=== PATIENT | male | born 1990 | race Hispanic/Latino ===

== ENCOUNTER 2017-10-19 09:25 | Emergency (ER) | payer SELFPAY | END 2017-10-19 09:49 | disposition home or self-care (01) | LOC: EDH 09:25 | DX: R19.7 Diarrhea, unspecified (principal); R10.13 Epigastric pain | CPT/HCPCS: 99281 ==

== ENCOUNTER 2024-12-14 16:22 | Emergency (ER) | payer BC ==
[~2024-12-14] VITALS: Ht 167.6 cm; Wt 95.3 kg
[2024-12-14 16:44] LABS: GLUCOSE, URINE (UA) NEGATIVE (NEGATIVE); LEUKOCYTE ESTERASE ,URINE NEGATIVE Leu/uL (NEGATIVE); NITRATE,URINE NEGATIVE (NEGATIVE); OCCULT BLOOD,URINE SMALL (NEGATIVE)
[2024-12-14 16:45] LABS: ADD UA MICROSCOPIC YES; APPEARANCE,URINE HAZY (CLEAR)
[2024-12-14 16:47] LABS: SQUAMOUS EPITHELIAL CELL,UR RARE /HPF (0-2)
[2024-12-14 16:47] LABS: IMMATURE GRANULOCYTE ABSOLUTE 0.05 K/uL (0-1); NUCLEATED RED BLOOD CELLS 0.0 % (0.0-0.19); PLATELET COUNT (AUTO) 295 K/uL (130-400); RED BLOOD CELL COUNT(AUTO) 5.18 MIL/uL (4.50-6.20); RED CELL DISTRIBUTION WIDTH 12.2 % (11.0-15.5); WHITE BLOOD COUNT (AUTO) 10.7 K/uL (4.8-10.8)
[2024-12-14] MEDS: 0.9%NACL 1000ML 1,000 ML IV STA (16:56)
--- NOTE | 2024-12-14 16:56 | ERN ---
General Chief Complaint: Abdominal Pain Stated Complaint: ABDOMINAL PAIN Time Seen by MD: 16:23 Source: patient History of Present Illness Initial Comments Patient is a 34-year-old male coming in to be evaluated for right flank pain. Patient states that the pain is 10/10 begins in the right posterior flank and radiates to the right inguinal area. He states that the pain is 10/10 intensity. Allergies: Coded Allergies: No Known Drug Allergies (Unverified Allergy, Unknown, 12/14/24) Past Medical History Past Medical History: No Pertinent History Past Surgical History: Tonsillectomy ROS Dictation CONSTITUTIONAL: No chills, no fever, no weakness, no diaphoresis, no malaise. HEAD/FACE: No signs of trauma. EENT: No eye pain, no blurred vision, no tearing, no double vision, no ear pain, no ear discharge, no nose pain, no nasal congestion, no throat pain, no throat swelling, no mouth pain. RESPIRATORY: No cough, no orthopnea, no SOB, no stridor, no wheezing. CARDIOVASCULAR: No chest pain, no edema, no palpitations, no syncope. GASTROINTESTINAL/ABDOMINAL: abdominal pain, no constipation, no diarrhea, no nausea, no vomiting. GENITOURINARY: No abnormal discharge, no dysuria, no frequent urination, no hematuria. No complaints of pain in the genitals. MUSCULOSKELETAL: No back pain, no gout, no joint pain, no joint swelling, no muscle pain, no muscle stiffness, no neck pain. INTEGUMENTARY: No change in color, no change in hair/nails, no dryness, no lesion, no lumps, no rash. NEUROLOGICAL/PSYCH: No anxiety, not depressed, no emotional problem, no headache, no numbness, no pre-existing deficit, no history of seizures, no tremors, no weakness. HEMATOLOGIC/LYMPHATIC: Not anemic, no history of blood clots, no apparent bleeding, no bruising, glands not swollen. All Systems Negative, Except as Noted. Physical Exam Physical Exam Dictation VITAL SIGNS: Reviewed. GENERAL APPEARANCE: Alert, oriented x3, no acute distress, obese. HEAD AND FACE: Non-traumatic. EYES: PERRL, pink conjunctivas, eyelid no trauma, anterior chamber clear. EARS: Pinnas intact and no signs of trauma or erythema. Ear canals clear and no discharge. TMs no erythema. NOSE: No discharge, no bleeding. OROPHARYNX: Mouth normal, teeth no caries, tongue pink. Pharynx clear, no erythema. Tonsils no exudates, no abscesses noted. Mucous membrane moist. NECK: Supple, non-tender, no thyromegaly, no masses, no JVD, no bruits. BREAST: Deferred. CHEST: No tenderness, no crepitus, no paradoxical movement, no retractions. LUNGS: Clear, well-ventilated, symmetric, no rales, no wheezing, no rhonchi, no stridor, good breath sounds bilaterally. HEART: Regular rate, regular rhythm, no murmur, no gallops. VASCULAR: No peripheral edema. ABDOMEN: Soft, positive bowel sounds, nondistended, no guarding, right he has been a 10 in his, no rebound, no masses no hepatomegaly, no splenomegaly, no Concepcion's sign, no hernias. RECTAL: Deferred. GENITAL: Deferred. NEUROLOGICAL: Normal speech, gross motor function intact, gross sensory fun ction intact. MUSCULOSKELETAL: Neck nontender, full range of motion, back nontender, full range of motion. EXTREMITIES: Nontender, full range of motion. SKIN: Color pink, dry, no turgor, no rash, no lacerations, no abrasions, no contusions. LYMPHATICS: Deferred. Results Laboratory and Microbiology Lab and Micro Result Laboratory Tests Test 12/14/24 16:30 12/14/24 16:41 Urine Color YELLOW (YELLOW) Urine Appearance HAZY (CLEAR) Urine pH 6.5 (5.0-8.0) Urine Specific [place] 1.025 (1.001-1.031) Urine Protein 30 mg/dL (NEGATIVE) H Urine Glucose (UA) NEGATIVE mg/dL (NEGATIVE) Urine Ketones NEGATIVE mg/dL (NEGATIVE) Urine Occult Blood SMALL (NEGATIVE) H Urine Nitrate NEGATIVE (NEGATIVE) Urine Bilirubin NEGATIVE mg/dL (NEGATIVE) Urine Urobilinogen 0.2 mg/dL (0.2-1.0) Urine Leukocyte Esterase NEGATIVE [place]/uL Urine RBC 11-25 /HPF (0-1) H Urine WBC 0-1 /HPF (0-1) Urine Squamous Epithelial Cells RARE /HPF (0-2) Urine Bacteria RARE /HPF (None Seen) White Blood Count 10.7 K/uL (4.8-10.8) Red Blood Count 5.18 MIL/uL (4.50-6.20) Hemoglobin 15.2 g/dL (14.0-18.0) Hematocrit 44.3 % (42-54) Mean Corpuscular Volume 85.5 fL (79-99) Mean Corpuscular Hemoglobin 29.3 pg (27.0-33.0) Mean Corpuscular Hemoglobin Concent 34.3 g/dL (32.0-36.0) Red Cell Distribution Width 12.2 % (11.0-15.5) Platelet Count 295 K/uL (130-400) Mean Platelet Volume 9.7 fL (7.5-10.5) Immature Granulocyte % (Auto) 0.5 % (0-1) Neutrophils (%) (Auto) 39.9 % (40.0-77.0) L Lymphocytes (%) (Auto) 46.1 % (21.0-51.0) Monocytes (%) (Auto) 9.7 % (3.0-13.0) Eosinophils (%) (Auto) 3.0 % (0.0-8.0) Basophils (%) (Auto) 0.8 % (0.0-5.0) Neutrophils # (Auto) 4.3 K/uL (1.8-7.7) Lymphocytes # (Auto) 4.9 K/uL (1.0-4.8) H Monocytes # (Auto) 1.0 K/uL (0.1-1.0) Eosinophils # (Auto) 0.32 K/uL (0.00-0.70) Basophils # (Auto) 0.09 K/uL (0.00-0.20) Absolute Immature Granulocyte (auto 0.05 K/uL (0-1) Nucleated Red Blood Cells 0.0 % (0.0-0.19) Sodium Level 144 mmol/L (136-145) Potassium Level 3.7 mmol/L (3.5-5.1) Chloride Level 106 mmol/L (101-111) Carbon Dioxide Level 25 mmol/L (21-32) Blood Urea Nitrogen 12 mg/dL (7-18) Creatinine 1.0 mg/dL (0.5-1.3) Glomerular Filtration Rate Calc 102 mL/min (>90) Random Glucose 112 mg/dL (70-105) H Total Calcium 9.2 mg/dL (8.5-10.1) Total Bilirubin 0.4 mg/dL (0.2-1.0) Aspartate Amino Transf (AST/SGOT) 23 U/L (10-37) Alanine Aminotransferase (ALT/SGPT) 62 U/L (12-78) Alkaline Phosphatase 104 U/L (50-136) Troponin I High Sensitivity < 4 ng/L (4-75) L Total Protein 8.1 g/dL (6.0-8.3) Albumin 3.9 g/dL (3.5-5.0) Lipase 19 U/L (16-77) Labs Reviewed?: Yes EKG/XRAY/US/CT/MRI CT Scan Comment [facility] [address] [place] [address] IMAGING REPORT Signed PATIENT: UTE ROCKWELL MR#: [id number] : 1990 SEX: M AGE: 34 LOCATION: [facility] ORDER 44 STATUS: REG ER REPORT#: [id number] SERVICE REASON: right flank pain ORDERING PHYSICIAN: FLETCHER TURNER MD PROCEDURE: ABD PEL WO - CT ABDOMEN/PELVIS W/O CONTRAST EXAM: CT Abdomen and Pelvis Without IV contrast CLINICAL HISTORY: right flank pain TECHNIQUE: Axial computed tomography images of the abdomen and pelvis without intravenous contrast. CONTRAST: No IV contrast. COMPARISON: None provided. FINDINGS: LUNG BASES: The lung bases appear clear. No pleural effusions are seen. LIVER: Enlarged liver with diffuse fatty infiltration. GALLBLADDER AND BILE DUCTS: The gallbladder appears within normal limits. No radioopaque gallstones are seen. No biliary ductal dilatation is evident. PANCREAS: Unremarkable. SPLEEN: Unremarkable. ADRENAL GLANDS: Unremarkable. KIDNEYS, URETERS, AND BLADDER: 3 mm stone in the right mid ureter with mild right hydroureteronephrosis. 8 mm nonobstructing left renal stone. No left ureteral stones. No left hydronephrosis. STOMACH AND BOWEL: No bowel obstruction or inflammation. APPENDIX: Normal appendix. PERITONEUM: No free fluid. No free air. LYMPH NODES: No lymphadenopathy is evident. REPRODUCTIVE: Unremarkable as visualized. VASCULATURE: No evidence of abdominal aortic aneurysm. BONES: No aggressive appearing osseous lesion. No acute osseous pathology evident. IMPRESSION: 1. 3 mm stone in the right mid ureter with mild right hydroureteronephrosis. 2. 8 mm nonobstructing left renal stone. 3. No left ureteral stones. No left hydronephrosis. 4. No bowel obstruction or inflammation. Normal appendix. 5. Enlarged liver with diffuse fatty infiltration. 6 /[place] DICTATED BY: ELSA DICKINSON MD DATE: 12/14/241902 ELECTRONICALLY SIGNED BY: ELSA DICKINSON MD DATE: 12/14/241902 MDM MDM: Differential diagnosis: Kidney stone, ureterolithiasis, Rationale: Tests considered and ordered secondary to shared decision making include: Previous outside records reviewed: Old ER visits. Risk of complication and/or morbidity or mortality of patient management: None Medications-Per medication reconciliation Patient is a 34-year-old male coming in to be evaluated for flank pain. CT disclose a 3 mm kidney stone. Patient will be discharged in stable condition with a diagnosis of ureterolithiasis. I advised him appropriate follow up with urologist for ongoing management. ED Course Orders Procedure Category Date Status Time Cbc With Differential LAB 12/14/24 Complete 16:34 Comprehensive LAB 12/14/24 Complete Metabolic Panel 16:34 Troponin I High LAB 12/14/24 Complete Sensitivity 16:34 Urinalysis Profile LAB 12/14/24 Complete 16:34 Lipase LAB 12/14/24 Complete 16:34 Ct Abdomen/Pelvis W/O CT 12/14/24 Resulted Contrast 16:44 Ondansetron 4mg Inj PHA 12/14/24 Complete (Zofran 4mg Inj) 17:00 0.9%Nacl 1000ml (Ns PHA 12/14/24 Complete 1000ml) 16:51 Ketorolac PHA 12/14/24 Complete Tromethamine 30mg/Ml 17:00 Current Medications Medications (Trade) Dose Ordered Sig/Rosy Route PRN Reason Start Time Stop Time Status Last Admin Dose Admin Ketorolac Tromethamine (toRADol) 30 mg ONCE ONCE IVP 12/14/24 17:00 12/14/24 17:02 DC 12/14/24 17:13 Ondansetron HCl (zoFRAN 4MG INJ) 4 mg ONCE ONCE IVP 12/14/24 17:00 12/14/24 17:01 DC 12/14/24 16:56 Sodium Chloride 1,000 ml @ 0 mls/hr Q0M STAT IV 12/14/24 16:51 12/14/24 16:55 DC 12/14/24 16:56 Vital Signs Date Time Temp Pulse Resp B/P (MAP) Pulse Ox O2 Delivery O2 Flow Rate FiO2 12/14/24 16:27 98.1 62 20 158/98 97 Room Air* 0 21 12/14/24 16:24 98.1 62 20 158/98 97 Room Air 0 DX & DISP Disposition: Discharge Departure Impression: Primary Impression: Ureterolithiasis Additional Impression: Kidney stone Condition: Stable Scripts Ketorolac Tromethamine (Ketorolac Tromethamine) 10 Mg Tablet 1 TAB PO Q6HPRN PRN for pain for 5 Days, #20 TAB 0 Refills Prov: FLETCHER TURNER MD 12/14/24 Tamsulosin HCl (Flomax) 0.4 Mg Cap.er.24h 1 CAP PO DAILY for 7 Days, #7 CAP 0 Refills Prov: FLETCHER TURNER MD 12/14/24 Cephalexin Monohydrate (Keflex) 500 Mg Cap 1 CAP PO BID for 10 Days, #20 CAP 0 Refills Prov: FLETCHER TURNER MD 12/14/24 Additional Instructions: FOLLOW-UP WITH PRIMARY CARE PROVIDER IN 1 TO 2 DAYS. TAKE MEDICATIONS DIRECTED HERE IN THE EMERGENCY ROOM. OKAY TO CONTINUE HOME MEDICATIONS UNLESS OTHERWISE DISCUSSED DURING YOUR VISIT IN THE EMERGENCY ROOM TODAY. RETURN TO YOUR NEAREST EMERGENCY ROOM IF SYMPTOMS WORSEN OR IF THERE IS NO IMPROVEMENT. CALL 911 IF YOU NEED IMMEDIATE ASSISTANCE. TAKE TYLENOL [id number] NEEDED AND IF NO CONTRAINDICATIONS ARE PRESENT. INCREASE ORAL HYDRATION. A WOUND CULTURE OR URINE CULTURE WAS ORDERED HERE IN THE EMERGENCY ROOM DEPARTMENT PLEASE FOLLOW-UP WITH PRIMARY CARE PROVIDER AND ADVISE THEM TO GET REPORTS FROM OUR FACILITY. IF YOU HAD ANY NEGRITO WRAP/SPLINTS THAT WERE APPLIED HERE, PLEASE DO NOT REMOVE THEM UNTIL YOU SEE YOUR PRIMARY CARE OR SPECIALTY. Referrals: Referrals: SELF,REFERRAL (PCP) KENISHA LAW MD, LUIS A MD Time of Disposition: 18:16 FLETCHER TURNER MD Dec 14, 2024 16:56
[2024-12-14 16:57] LABS: CREATININE 1.0 mg/dL (0.5-1.3); GLOMERULAR FILTR. RATE CALC 102.0 mL/min (>90); GLUCOSE,RANDOM 112.0 mg/dL (70-105); SODIUM SERUM 144.0 mmol/L (136-145); UREA NITROGEN, BLOOD 12.0 mg/dL (7-18)
[2024-12-14 17:08] LABS: ASPARTATE AMINOTRANSFERASE 23.0 U/L (10-37); TOTAL PROTEIN, SERUM 8.1 g/dL (6.0-8.3)
--- NOTE | 2024-12-14 18:04 | HMCIMG ---
EXAM: CT Abdomen and Pelvis Without IV contrast CLINICAL HISTORY: right flank pain TECHNIQUE: Axial computed tomography images of the abdomen and pelvis without intravenous contrast. CONTRAST: No IV contrast. COMPARISON: None provided. FINDINGS: LUNG BASES: The lung bases appear clear. No pleural effusions are seen. LIVER: Enlarged liver with diffuse fatty infiltration. GALLBLADDER AND BILE DUCTS: The gallbladder appears within normal limits. No radioopaque gallstones are seen. No biliary ductal dilatation is evident. PANCREAS: Unremarkable. SPLEEN: Unremarkable. ADRENAL GLANDS: Unremarkable. KIDNEYS, URETERS, AND BLADDER: 3 mm stone in the right mid ureter with mild right hydroureteronephrosis. 8 mm nonobstructing left renal stone. No left ureteral stones. No left hydronephrosis. STOMACH AND BOWEL: No bowel obstruction or inflammation. APPENDIX: Normal appendix. PERITONEUM: No free fluid. No free air. LYMPH NODES: No lymphadenopathy is evident. REPRODUCTIVE: Unremarkable as visualized. VASCULATURE: No evidence of abdominal aortic aneurysm. BONES: No aggressive appearing osseous lesion. No acute osseous pathology evident. IMPRESSION: 1. 3 mm stone in the right mid ureter with mild right hydroureteronephrosis. 2. 8 mm nonobstructing left renal stone. 3. No left ureteral stones. No left hydronephrosis. 4. No bowel obstruction or inflammation. Normal appendix. 5. Enlarged liver with diffuse fatty infiltration. 6 /[place]
[2024-12-14] MEDS ORDERED: CEPH500B PO (18:17)
[2024-12-14] MEDS ORDERED: KETO10TA2 PO (18:17)
[2024-12-14] MEDS ORDERED: TAMS-55 PO (18:17)
[2024-12-14 18:19] VITALS: BP 138/81; PULSE 68; RESP 18; TEMP 98.1; O2SAT 98
== END 2024-12-14 18:30 | disposition home or self-care (01) ==
LOC: EDH 16:22
DX: N13.2 Hydronephrosis with renal and ureteral calculous obstruction (principal); Z90.89 Acquired absence of other organs
CPT/HCPCS: 99284; 74176; 96374; 96361; 96375; 84484; 80053; 83690; 85025; 81001; 36415; J1885; J7030; J2405